=== PATIENT | male | born 1980 | race African-American/Black ===

== ENCOUNTER 2017-10-07 02:59 | Emergency (ER) | payer MEDICAID ==
[~2017-10-07] VITALS: Ht 175.3 cm; Wt 74.0 kg
[2017-10-07] MEDS ORDERED: NAPROXEN 500MG TABLET PO SCH (03:45)
[2017-10-07] MEDS ORDERED: BUPIVACAINE/EPINEPHRINE/PF 0.25%/0.0005 30ML INJ SCH (03:45)
[2017-10-07 04:37] VITALS: BP 152/108
[2017-10-07] MEDS ORDERED: PENICILLIN V POTASSIUM 250MG TABLET PO SCH (06:00)
== END 2017-10-07 04:39 | disposition home or self-care (01) ==
LOC: ER 02:59
DX: K04.7 Periapical abscess without sinus (principal); K02.9 Dental caries, unspecified; G44.209 Tension-type headache, unspecified, not intractable; F17.200 Nicotine dependence, unspecified, uncomplicated
CPT/HCPCS: 64400; 99284; J0171; Z7610